=== PATIENT | male | born 1975 | race Caucasian/White ===

== ENCOUNTER 2023-03-11 10:48 | Inpatient (IN) ==
--- NOTE | 2023-02-20 09:59 | PAT Medication Instructions ---
Medication Instructions Date of Service February 20, 2023 Home Medications atenolol 50 mg tablet 50 mg PO BID cholecalciferol (vitamin D3) 25 mcg (1,000 unit) tablet 1,000 unit PO DAILY diphenoxylate-atropine 2.5 mg-0.025 mg tablet 1 - 2 tab PO BID gabapentin 600 mg tablet 600 mg PO BID levothyroxine 100 mcg tablet 100 mcg PO QAM lorazepam 0.5 mg tablet 0.5 mg PO QAM losartan 100 mg-hydrochlorothiazide 25 mg tablet 1 tab PO QAM naproxen 500 mg tablet 500 mg PO BID PRN Pain oxycodone-acetaminophen 5 mg-325 mg tablet 1 tab PO Q6H PRN Pain tizanidine 4 mg tablet 4 mg PO Q8H PRN Muscle Spasm trazodone 50 mg tablet 50 - 100 mg PO HS atorvastatin 40 mg tablet 40 mg PO QAM sildenafil 100 mg tablet 100 mg PO UD PRN Sexual Activity ASK your surgeon for instructions naproxen 500 mg tablet 500 mg PO BID PRN Pain STOP taking 24 hours before surgery sildenafil 100 mg tablet 100 mg PO UD PRN Sexual Activity DO NOT take the morning of surgery cholecalciferol (vitamin D3) 25 mcg (1,000 unit) tablet 1,000 unit PO DAILY diphenoxylate-atropine 2.5 mg-0.025 mg tablet 1 - 2 tab PO BID losartan 100 mg-hydrochlorothiazide 25 mg tablet 1 tab PO QAM tizanidine 4 mg tablet 4 mg PO Q8H PRN Muscle Spasm Take morning of surgery With a small sip of water, OTHERWISE NOTHING TO EAT OR DRINK AFTER MIDNIGHT: atenolol 50 mg tablet 50 mg PO BID gabapentin 600 mg tablet 600 mg PO BID levothyroxine 100 mcg tablet 100 mcg PO QAM lorazepam 0.5 mg tablet 0.5 mg PO QAM oxycodone-acetaminophen 5 mg-325 mg tablet 1 tab PO Q6H PRN Pain (if needed) atorvastatin 40 mg tablet 40 mg PO QAM Take evening before surgery atenolol 50 mg tablet 50 mg PO BID diphenoxylate-atropine 2.5 mg-0.025 mg tablet 1 - 2 tab PO BID gabapentin 600 mg tablet 600 mg PO BID oxycodone-acetaminophen 5 mg-325 mg tablet 1 tab PO Q6H PRN Pain (if needed) tizanidine 4 mg tablet 4 mg PO Q8H PRN Muscle Spasm (if needed) trazodone 50 mg tablet 50 - 100 mg PO HS Other Notes If you have any questions please call us at [phone] or [phone] or [phone] or [phone]
--- NOTE | 2023-02-25 14:33 | Anesthesiology Consultation ---
Date of Service February 25, 2023 Assessment & Plan (1) Encounter for pre-operative examination: Chart Review Chart Review: Acceptable Risk for Surgery (pending PCP clearance 03/07/23 ) and Patient seen in Pre Admission Testing - Awaiting PCP clearance 03/07/23 Per PAT appt on 02/25/23, patient denies any recent travel or large group activities. Pt is vaccinated for Covid. Will leave to surgeon's discretion if p reop Covid testing needed. Educated on importance of using Covid precautions one week prior to surgery Teaching & Discussion Pre-Anesthesia Teaching/Discussion Notes: Instructed NPO after midnight before surgery,except medications with 15 cc of water. Medication instructions provided according to the PAT guidelines. History Surgery Operation Date: 03/11/23 10:05 Proposed Procedures p L5-S1 Decompression and Fusion, Possible L4-L5 Spinal Cord Monitoring - Brad More, Height/Weight Height: 5 ft 8 in Weight: 91.8 kg Allergies Allergy/AdvReac Type Severity Reaction Status Date / Time Iodinated Contrast Media Allergy Severe Swelling Verified 02/20/23 14:25 [Iodinated Contrast- Oral of and IV Dye] Lip/Tongue/Throat Medications Home Medications Medication Instructions Recorded Confirmed Last Taken atenolol 50 mg tablet 50 mg PO BID 12/06/18 02/20/23 01/28/23 04:45 cholecalciferol (vitamin D3) 25 1,000 unit PO DAILY 12/06/18 02/20/23 01/28/23 04:45 mcg (1,000 unit) tablet diphenoxylate-atropine 2.5 1 - 2 tab PO BID 12/06/18 02/20/23 Unknown mg-0.025 mg tablet gabapentin 600 mg tablet 600 mg PO BID 12/06/18 02/20/23 01/28/23 04:45 levothyroxine 100 mcg tablet 100 mcg PO QAM 12/06/18 02/20/23 01/28/23 04:45 lorazepam 0.5 mg tablet 0.5 mg PO QAM 12/06/18 02/20/23 01/28/23 04:45 losartan 100 1 tab PO QAM 12/06/18 02/20/23 01/28/23 04:45 mg-hydrochlorothiazide 25 mg tablet naproxen 500 mg tablet 500 mg PO BID PRN Pain 12/06/18 02/20/23 Unknown tizanidine 4 mg tablet 4 mg PO Q8H PRN Muscle Spasm 12/06/18 02/20/23 01/25/23 trazodone 50 mg tablet 50 - 100 mg PO HS 12/06/18 02/20/23 01/25/23 atorvastatin 40 mg tablet 40 mg PO QAM 08/03/19 02/20/23 01/26/23 sildenafil 100 mg tablet 100 mg PO UD PRN Sexual Activity 08/22/19 02/20/23 Unknown #6 tabs dicyclomine 10 mg capsule 10 mg PO TID PRN IBS/diarrhea #90 02/20/23 02/20/23 Unknown caps hydrochlorothiazide 25 mg tablet 25 mg PO DAILY 02/25/23 02/25/23 Unknown topiramate 50 mg tablet (Topamax) 50 mg PO QPM 02/25/23 02/25/23 Unknown Past Medical History Medical History Anxiety Chronic pain Degenerative disc disease History of COVID-19 08/2021>RESOLVED HTN (hypertension) Hyperlipidemia Hypothyroidism IBS (irritable bowel syndrome) Diarrhea associated- following with GI C-scope January 2023- no significant issues per patient Insomnia Irregular heart beat NO HEEL SEAT LASTER- ASYMPTOMATIC Sleep apnea NO DEVICE- CANNOT TOLERATE Exercise / Class Metabolic Activity II 4-5 Yardwork/Stairs/Walk up hill (one flight of stairs- no chest pain or SOB ) Past Family History Family History Father Myocardial infarction Other No family history of adverse response to anesthesia No significant family history Past Surgical History Surgical History H/O inguinal hernia repair RT/LEFT H/O umbilical hernia repair History of colonoscopy History of esophagogastroduodenoscopy (EGD) Hx of neck surgery CERVICAL FUSION X 2 WITH CAGE ROM>"GOOD" CAN MOVE SIDE TO SIDE BUT LIMITED Hx of vasectomy [place] teeth removed Past Anesthesia History No Hx of Anesthesia Complications and No Family Hx of Anesthesia Complications History of PONV No Hx of PONV and No Hx of Motion Sickness Social History Smoking Status: Current every day smoker tobacco type: cigarettes Smoking cigarettes per day: 1/2 ppd Do You Dip or Chew Tobacco: No Hx Alcohol Use: No Hx Substance Use: No substance use type: does not use Review of Systems Patient denies chest pain, shortness of breath, dyspnea on exertion, reflux, cough, wheezing, palpitations. No hx of seizures, stroke, MS. No hx of blood clots or blood transfusions Physical Exam Vital Signs VITALS BP 142/87 P 84 TEMP 98.4 SP02 97% RESP 16 Constitutional no acute distress ENMT Mouth: no TMJ clicking Thyromental Distance: > or= 3.5 Finger Breadths (3.5) Mallampati Class: III Neck + limited neck extension (significant) Respiratory normal respiratory effort; no respiratory distress Auscultation: lungs clear to auscultation bilaterally; no wheezes Cardiovascular Rate/Rhythm: regular rate and regular rhythm Heart Sounds: no murmur Vessels: no carotid bruit Musculoskeletal Spine: no pain with cervical ROM Extremities: extremities normal to inspection Psychiatric Orientation: alert Lab Results Anesthesia Preop Results Results Anesthesia Widget: WBC 9.95 K/ul (4.8-10.8) 02/25/23 Hgb 15.1 g/dl (14.0-18.0) 02/25/23 Hct 43.0 % (42.0-52.0) 02/25/23 Plt 219 K/uL (130-400) 02/25/23 Na 133 mmol/L (136-145) L 02/25/23 K 3.3 mmol/L (3.5-5.1) L 02/25/23 Cl 99 mmol/L (98-107) 02/25/23 CO2 24 mmol/L (21-32) 02/25/23 BUN 12 mg/dl (6-23) 02/25/23 Creat 0.94 mg/dl (0.6-1.4) 02/25/23 Glucose Level 116 mg/dl (70-99(Fasting)) H 02/25/23 PT 10.6 Seconds (9.0-12.0) 02/25/23 PTT 28.4 Seconds (21.0-31.0) 02/25/23 INR 1.0 (0.9-1.1) 02/25/23 Urine Color Yellow 02/25/23 Urine Appearance Clear (Clear) 02/25/23 Urine pH 6.0 (4.5-7.5) 02/25/23 Urine Specific [place] 1.016 (1.000-1.030) 02/25/23 Urine Protein Negative (Negative) 02/25/23 Urine Glucose (UA) Negative (Negative) 02/25/23 Urine Ketones Negative (Negative) 02/25/23 Urine Blood Negative (Negative) 02/25/23 Urine Nitrite Negative (Negative) 02/25/23 Urine Bilirubin Negative (Negative) 02/25/23 Urine Urobilinogen Negative (Negative) 02/25/23 Urine Leukocyte Esterase Negative (Negative) 02/25/23 Blood Type A Positive 02/25/23 Antibody Screen NEGATIVE 02/25/23 Testing Electrocardiogram Date: 02/25/23 Findings: + NSR @ (78bpm ) Possible left atrial enlargement When compared to EKG from Jul- no significant change was found Chest X-Ray Date: 02/25/23 FINDINGS: Cardiac silhouette is enlarged. No pneumothorax, pleural effusion, airspace consolidation or pulmonary edema. Degenerative changes of the shoulders and spine. Postoperative changes of the cervical spine IMPRESSION: No acute process. Echocardiogram Date: 12/07/18 EF: 60-65% LV Function: normal Other Findings: + LVH (mild to moderate/concentric) and + diastolic dysfunction (Grade I ) Valvular Disease: + no significant valvular disease Other Testing Holter monitor 12/29/18= Impression: 1. Sinus rhythm with average heart rate 73 bpm. 2. Very rare isolated supraventricular ectopic complexes. 3. Very rare isolated PVCs. 4. No arrhythmia. 5. No reported symptoms. COVID-19 Risk Screen Screening Information COVID-19 Screen Date: 02/25/23 Exposure 21 Days Family/Household +COVID Last 21 Days: No Exposure 10 Days Any COVID Exposure Last 10 Days: No Symptoms Last 10 Days Experienced COVID Sx Last 10 Days: No + COVID 0-90 Days COVID + in Last 0-90 Days: No Risk Plan COVID Risk Plan: No Risk Identified Patient Education COVID Preop Screening Education Complete: Yes
[~2023-03-11 10:48] MED LIST: ACETAMINOPHEN 500 MG TAB PO SCH; CeleBREX 200 MG CAP PO SCH; GABAPENTIN 900 MG DOSE PO SCH; LR 15ML/HR IV SCH; ceFAZolin 2000MG 2,000 MG/15 ML SYR IV SCH
[2023-03-11] MEDS ORDERED: ONDANSETRON INJ 2 MG/ML 2 ML VIAL ONE (11:03)
[2023-03-11] MEDS ORDERED: PROPOFOL IV EMULSION 10 MG/ML 20 ML VIAL IV ONE (11:03)
[2023-03-11] MEDS ORDERED: LIDOCAINE 2% MPF LOCAL 5 ML VIAL ONE (11:03)
[2023-03-11] MEDS ORDERED: fentaNYL citrate PF 100 MCG/2 ML VIAL ONE (11:03)
[2023-03-11] MEDS ORDERED: DEXAMETHASONE SOD INJ 4 MG/ML VIAL ONE (11:03)
[2023-03-11] MEDS ORDERED: MIDAZOLAM HCL 1 MG/ML 2ML VIAL ONE (11:03)
[2023-03-11] MEDS ORDERED: ROCURONIUM BROMIDE 10 MG/ML 5 ML VIAL IV ONE (11:03)
[2023-03-11] MEDS ORDERED: ePHEDrine sulfate 50 MG/ML AMP IV PRN (11:50)
[2023-03-11] MEDS ORDERED: ONDANSETRON INJ 2 MG/ML 2 ML VIAL IV PRN ×2 (11:50→15:09)
[2023-03-11] MEDS ORDERED: fentaNYL citrate PF 100 MCG/2 ML VIAL IV PRN (11:50)
[2023-03-11] MEDS ORDERED: ATROPINE SULFATE 0.1 MG/ML 10ML SYR IV PRN (11:50)
--- NOTE | 2023-03-11 11:57 | History & Physical Bridge Note ---
Date of Service March 11, 2023 History & Physical Bridge Note I have examined the patient, reviewed the History & Physical and in the interval since the performance of the History & Physical I have noted the following changes of clinical significance: no changes noted
--- NOTE | 2023-03-11 11:58 | History & Physical Report ---
Date of Service March 11, 2023 Assessment & Plan (1) Neurogenic claudication due to lumbar spinal stenosis: Plan: L5-S1 decompression and fusion, possible L4-L5 History of Present Illness Chief Complaint: Back and leg pain Primary Care Provider: Julio Cesar Lincoln This is a 47-year-old male who presents with chronic persistent back and leg pain after failing course of nonoperative care is here for surgical invention. Allergies Allergy/AdvReac Type Severity Reaction Status Date / Time Iodinated Contrast Media Allergy Severe Swelling Verified 03/11/23 11:15 [Iodinated Contrast- Oral of and IV Dye] Lip/Tongue/Throat Home Medications Medication Instructions Recorded Confirmed Type atenolol 50 mg tablet 50 mg PO BID 12/06/18 03/11/23 History cholecalciferol (vitamin D3) 25 1,000 unit PO DAILY 12/06/18 03/11/23 History mcg (1,000 unit) tablet diphenoxylate-atropine 2.5 1 - 2 tab PO BID 12/06/18 03/11/23 History mg-0.025 mg tablet gabapentin 600 mg tablet 600 mg PO BID 12/06/18 03/11/23 History levothyroxine 100 mcg tablet 100 mcg PO QAM 12/06/18 03/11/23 History lorazepam 0.5 mg tablet 0.5 mg PO QAM 12/06/18 03/11/23 History losartan 100 1 tab PO QAM 12/06/18 03/11/23 History mg-hydrochlorothiazide 25 mg tablet naproxen 500 mg tablet 500 mg PO BID PRN Pain 12/06/18 03/11/23 History tizanidine 4 mg tablet 4 mg PO Q8H PRN Muscle Spasm 12/06/18 03/11/23 History trazodone 50 mg tablet 50 - 100 mg PO HS 12/06/18 03/11/23 History atorvastatin 40 mg tablet 40 mg PO QAM 08/03/19 03/11/23 History sildenafil 100 mg tablet 100 mg PO UD PRN Sexual Activity 08/22/19 03/11/23 History #6 tabs dicyclomine 10 mg capsule 10 mg PO TID PRN IBS/diarrhea #90 02/20/23 03/11/23 Rx caps hydrochlorothiazide 25 mg tablet 25 mg PO DAILY 02/25/23 03/11/23 History topiramate 50 mg tablet (Topamax) 50 mg PO QPM 02/25/23 03/11/23 History oxycodone-acetaminophen 5 mg-325 1 tab PO Q4H PRN Pain 03/11/23 03/11/23 History mg tablet potassium chloride 10 mEq 10 meq PO DAILY 03/11/23 03/11/23 History capsule,extended release Past Med/Surg History Medical History Anxiety Chronic pain Degenerative disc disease History of COVID-19 08/2021>RESOLVED HTN (hypertension) Hyperlipidemia Hypothyroidism IBS (irritable bowel syndrome) Diarrhea associated- following with GI C-scope January 2023- no significant issues per patient Insomnia Irregular heart beat NO DIRECTOR OF PHILANTHROPY- ASYMPTOMATIC Sleep apnea NO DEVICE- CANNOT TOLERATE Surgical History H/O inguinal hernia repair RT/LEFT H/O umbilical hernia repair History of colonoscopy History of esophagogastroduodenoscopy (EGD) Hx of neck surgery CERVICAL FUSION X 2 WITH CAGE ROM>"GOOD" CAN MOVE SIDE TO SIDE BUT LIMITED Hx of vasectomy [place] teeth removed Family History Father Myocardial infarction Other No family history of adverse response to anesthesia No significant family history Social History Smoking Status: Current every day smoker Cigarettes Per Day: 1/2 ppd; Second Hand Exposure: No; Do You Dip or Chew Tobacco: No; Tobacco Cessation Education Requested by Patient: No Hx Alcohol Use: No Hx Substance Use: No Preferred Language: Greek Communication Ability: Effective Head Of Design Required: No Beliefs That Will Affect Care: None marital status: Current Living Situation: Spouse Current Living Situation Comment: AND 2 CHILDREN current occupational status: employed Other Information That Helps Us Care for You: No Feels Safe at Home: Yes Safety Concerns: Feels Safe At This Time Assistive Devices: Glasses Physical Exam Physical Exam: Patient is alert and oriented Heart regular rhythm Lungs clear Results & Data Results & Data Vital Signs (Past 12 Hours) Vital Signs Temp Pulse Resp BP Pulse Ox O2 Del Method 03/11/23 11:05 36.7 C 76 18 136/87 98 Room Air
[2023-03-11] MEDS ORDERED: BUPIVACAINE/EPINEPHRINE 0.25% 1:200,000 30 ML VIAL ONE (12:13)
[2023-03-11] MEDS ORDERED: ceFAZolin 330 MG/ML 1 GM VIAL ONE (12:13)
[2023-03-11] MEDS ORDERED: HYDROmorphone INJ 2 MG/ML SYR/VIAL ONE (12:50)
[2023-03-11] MEDS ORDERED: FLOSEAL HEMOSTATIC MATRIX 10ML TOP ONE (12:57)
[2023-03-11] MEDS ORDERED: SUGAMMADEX SODIUM 200 MG/2 ML VIAL IV ONE (13:57)
--- NOTE | 2023-03-11 14:04 | Operative Report ---
Post Operative Report Pre & Post Diagnosis Operation Date: 03/11/23 12:25 Pre-Op Diagnosis: Radiculopathy, Lumbar Region Post-Op Diagnosis: Radiculopathy, Lumbar Region I identified the patient and participated in the time-out.: Yes Procedure Operation Date: 03/11/23 12:25 Actual Procedures #1 lumbar decompression bilateral medial facetectomies and foraminotomies L4-L5 L5-S1. #2 posterior spinal fusion L5-S1. #3 placement posterior instrumentation L5-S1. #4 interbody fusion L5-S1 per #5 placement of Spira 14 x 26 mm cage at L5-S1. #6 placement locally harvested morselized autograft in the posterior gutters. #7 placement of I factor combined with the talus in the interbody space and posterior lateral gutters. Surgeon Brad More, DO Biogeographer Viola Reddy Estimated Blood Loss 50 Findings See Below Patient is 5 foot 8 weighing over 90 kg with a BMI in excess of 30. The patient's body habitus did contribute to significant technical difficulty required deepest retractors and longer instruments in order to perform his procedure. This had at least 50% increased operative time. Specimens None Indications This is a 47-year-old male who presents above-mentioned diagnosis after failed course of nonoperative care is here for surgical invention. Description of Procedure Patient was met with identified informed consent obtained. Patient was then taken to the operative suite underwent patient placed in a prone position on the Jeremie table top of the Juan C frame. All bony promises well-padded eyes inspected to ensure no external pressure placed upon them. This point the lumbar spine was prepped and draped in normal sterile fashion. Sharp dissection with the assistance of Bovie cautery was performed down to and exposing the lamina and transverse processes of L5 and sacral ala bilaterally. From caudal to cephalad fashion complete laminectomy L5 partial laminectomy of L4 was performed including bilateral medial facetectomies and foraminotomies addressing severe spinal stenosis as well as evidence of large calcified disc herniation 5 S1 on the right. After complete decompression pedicle screws were placed in L5 and S1 levels bilaterally with assistance of fluoroscopy and the properly sized isabella placed. By way the transforaminal approach on the right complete discectomy L5-S1 was performed endplates curetted to subcortical bleeding bone and a 14 x 26 mm Spira cage with I factor tapped in position. The rods then locked in final position bilaterally. The transverse processes of L5 and sacral ala burred to subcortical bleeding bone. I factor amount of the test and locally harvested morselized autograft was placed in the posterior gutters. 15 round BERTO drain inserted. The incision was then closed with 1 Vicryl the fascia 2-0 Vicryl subcutaneously and 4 Monocryl for final skin closure. Steri-Strips and sterile dressing placed. Patient awakened taken to PACU stable condition. Please note spinal cord monitoring was utilized at the procedure no changes noted. Lastly Viola eRddy was present at the entire surgeon while the patient positioning complex portions of the surgery and final skin closure. I attest to the content of the Intraoperative Record and any orders documented therein. Any exceptions are noted below.
--- NOTE | 2023-03-11 14:34 | Fluoroscopy Report ---
INTRAOPERATIVE RADIOGRAPHS CLINICAL HISTORY: L5-S1 spinal fusion. Fluoro time: 22 seconds Ka,r: 18.68 mGy FINDINGS: 2 spot fluoroscopic views of the lumbar spine are presented. There has been discectomy at L 5-S1 with laminectomy and posterior fusion at this level. Interpedicular screws are in place. The ort hopedic hardware appears intact. IMPRESSION: Intraoperative images from lumbar spinal fusion surgery as above. Electronically signed by: Tristian Qiu M.D. 03/11/2023 2:33 PM
--- NOTE | 2023-03-11 14:56 | Anesthesiology Progress Note ---
Date of Service March 11, 2023 Anesthesia Post Procedure Vital Signs Vital Signs: Temp Pulse Pulse Resp BP Pulse Ox O2 Del Method 03/11/23 14:45 97.3 F L 73 12 143/89 H 98 Room Air 03/11/23 14:35 72 13 141/93 H 100 Oxymask 03/11/23 14:25 76 14 139/92 99 Oxymask 03/11/23 14:19 97.2 F L 73 14 165/93 H 99 Oxymask 03/11/23 11:05 98.1 F 76 18 136/87 98 Room Air O2 Flow Rate 03/11/23 14:45 03/11/23 14:35 9 03/11/23 14:25 9 03/11/23 14:19 9 03/11/23 11:05 Pain Intensity Right Lower Back: Pain Intensity: 6 Back: Pain Intensity: 4 Transfer of Care Handoff Completed per policy Notes Mental Status: alert / awake / arousable and participated in evaluation Patient Amnestic to Procedure: Yes Nausea / Vomiting: adequately controlled Pain: adequately controlled Airway Patency, RR, SpO2: stable & adequate BP & HR: stable & adequate Hydration State: stable & adequate Anesthetic Complications: no major complications apparent and Pt Satisfied with anesthetic care
[2023-03-11] MEDS ORDERED: traMADol HCL 50 MG TABLET PO PRN (15:09)
[2023-03-11] MEDS ORDERED: ALUMINUM/MAGNESIUM SUSP 30 ML UDC PO PRN (15:09)
[2023-03-11] MEDS ORDERED: FAMOTIDINE 20 MG TAB PO PRN (15:09)
[2023-03-11] MEDS ORDERED: LORazepam 2 MG/1 ML VIAL IV PRN (15:09)
[2023-03-11] MEDS ORDERED: PROMETHAZINE HCL 12.5 MG in SODIUM CHLORIDE 0.9% 50 ML IV PRN (15:09)
[2023-03-11] MEDS ORDERED: ACETAMINOPHEN 1,000 MG/100 ML VIAL IV PRN (15:09)
[2023-03-11] MEDS ORDERED: METOCLOPRAMIDE HCL INJ 5 MG/ML 2 ML VIAL IV PRN (15:09)
[2023-03-11] MEDS ORDERED: MAGNESIUM HYDROXIDE SUSP 30 ML UDC PO PRN (15:09)
[2023-03-11] MEDS ORDERED: diphenhydrAMINE Capsule 25 MG CAP PO PRN (15:09)
[2023-03-11] MEDS ORDERED: ACETAMINOPHEN 500 MG TAB PO PRN (15:09)
[2023-03-11] MEDS ORDERED: SOD PHOSPHATE/SOD BIPHOSPHATE ENEMA 132 ML BTL PR PRN (15:09)
[2023-03-11] MEDS ORDERED: tiZANidine HCL 4 MG TABLET PO PRN (15:09)
[2023-03-11] MEDS ORDERED: HYDROmorphone INJ 1 MG/ML SYRINGE IV PRN (15:09)
[2023-03-11] MEDS ORDERED: HYDROmorphone INJ 0.5 MG/0.5 ML SYR IV PRN (15:09)
[2023-03-11] MEDS ORDERED: ONDANSETRON 4 MG OD TAB PO PRN (15:09)
[2023-03-11] MEDS ORDERED: LORazepam 0.5 MG TAB PO PRN (15:09)
[2023-03-11] MEDS ORDERED: DO NOT ADMINISTER FLU VACCINE PRN (15:09)
[2023-03-11] MEDS ORDERED: hydrOXYzine HCl 25 MG TAB PO PRN (15:09)
[2023-03-11] MEDS ORDERED: NALOXONE HCL 0.4 MG/1 ML VIAL/CARP IV PRN (15:09)
[2023-03-11] MEDS ORDERED: DO NOT ADMINISTER PNEUMOCOCCAL VACCINE PRN (15:09)
[2023-03-11] MEDS ORDERED: bisacodyL 10 MG SUPP PR PRN (15:09)
--- NOTE | 2023-03-11 15:52 | Hospitalist Consultation ---
Date of Consultation March 11, 2023 Assessment & Plan (1) Status post lumbar spine operative procedure for decompression of spinal cord: -Patient is currently afebrile, hemodynamically stable, and stable on RA -Pain control, perioperative abx, DVT PPX, and IV fluids per the primary team -Agree with am labs, we will follow -Will add on Protonix for stress ulcer PPX -Thank you for allowing us to participate in the care of this patient, please reach out with any questions or concerns (2) Chronic diarrhea: -Continue Bentyl (3) SHARI (obstructive sleep apnea): -No longer using CPAP due to night terrors (4) Hypothyroid: -Continue levothyroxine (5) HTN (hypertension): -Stable -Agree with continuing atenolol tonight -Agree with continuing Losartan-HCTZ and separate HCTZ tomorrow as long as he is stable and without renal or electrolytes derrangements (6) Chronic pain: -Acute pain control due to procedure per the primary team -Continuing gabapentin and trazodone -PRN Narcan ordered by the primary team (7) Anxiety: -Continue ativan (8) Insomnia: -Continue HS trazodone Plan The patient was discussed with Dr. Solis at the time of the consult Supervising Physician Co-Signing Physician Notes Patient seen and examined, chart reviewed, case discussed with [] and I agree with the assessment and plan as above except as otherwise noted Labs and images reviewed Arian is a 47-year-old male with past medical history of neurogenic claudication, chronic back pain due to lumbar stenosis, SHARI, hypothyroidism, hypertension, anxiety, chronic pain who presented for lumbar decompression and fusion with Dr. More. We are consulted for medical management of comorbidities. At bedside assessment patient is sleeping comfortably, awakens easily and reports he feels well, continues to have some pain going into his proximal right leg. This currently feels slightly less than preoperatively, reports feeling a started come back and is not sure how much pain will come back yet but is optimistic. He does have some postsurgical pain in his lumbar spine around the surgical site which does not radiate. He denies shortness of breath, difficulty breathing, lightheadedness, dizziness. Patient is curious what his pain control regimen will be, discussed that this will be adjusted based on the degree of pain that he has and hopefully the surgery will have helped with this. Can continue Tylenol every 8 hours, Toradol every 6 hours, tizanidine for spasm, and hydromorphone for breakthrough pain. Can transition to p.o. oxycodone for breakthrough pain. Hold all narcotics for any signs of narcosis. PPI added for GI prophylaxis especially while on high-dose Toradol. agree with resuming atenolol tonight and continuing losartan/HCTZ tomorrow as long as renal function remains at baseline. Can continue trazodone nightly, ideally would be on CPAP but is not able to tolerate this due to anxiety and night terrors so reasonable to defer unless patient display signs of hypercapnia which she currently does not. Lungs are clear, heart rate is regular at assessment. BERTO drain is in place in pocket draining serosanguineous material. Agree with assessment and management above History of Present Illness Reason for Consultation: Post-op medical management Requesting Physician: Brad More DO Attending Physician: Dr. Joseph Solis History of Present Illness Arian is a 47 year old male with a PMH significant for HTN, hypothyroidism, SHARI, anxiety, hyperlipidemia, tobacco abuse, and chronic low back pain who presented to [facility] OR on 03/11/23 for L5-S1 Decompression and Fusion, Spinal Cord Monitoring with Dr. More. Per the operative note, there were no reported intraoperative complications and EBL was listed as 50 cc. Per review, his vitals have been stable since arriving this am. At the time of the exam the patient was lying in bed in no acute distress with his family sitting bedside. He has some minor pain at procedure site, otherwise he is feeling well. he confirms that he is no longer his CPAP machine and took his am medications today. He recently started topamax for chronic neck pain. Please refer to Dr. Solis's attestation for any changes to the treatment plan Allergies Allergy/AdvReac Type Severity Reaction Status Date / Time Iodinated Contrast Media Allergy Severe Swelling Verified 03/11/23 11:15 [Iodinated Contrast- Oral of and IV Dye] Lip/Tongue/Throat Home Medications Medication Instructions Recorded Confirmed Type atenolol 50 mg tablet 50 mg PO BID 12/06/18 03/11/23 History cholecalciferol (vitamin D3) 25 1,000 unit PO DAILY 12/06/18 03/11/23 History mcg (1,000 unit) tablet diphenoxylate-atropine 2.5 1 - 2 tab PO BID 12/06/18 03/11/23 History mg-0.025 mg tablet gabapentin 600 mg tablet 600 mg PO BID 12/06/18 03/11/23 History levothyroxine 100 mcg tablet 100 mcg PO QAM 12/06/18 03/11/23 History lorazepam 0.5 mg tablet 0.5 mg PO QAM 12/06/18 03/11/23 History losartan 100 1 tab PO QAM 12/06/18 03/11/23 History mg-hydrochlorothiazide 25 mg tablet naproxen 500 mg tablet 500 mg PO BID PRN Pain 12/06/18 03/11/23 History tizanidine 4 mg tablet 4 mg PO Q8H PRN Muscle Spasm 12/06/18 03/11/23 History trazodone 50 mg tablet 50 - 100 mg PO HS 12/06/18 03/11/23 History atorvastatin 40 mg tablet 40 mg PO QAM 08/03/19 03/11/23 History sildenafil 100 mg tablet 100 mg PO UD PRN Sexual Activity 08/22/19 03/11/23 History #6 tabs dicyclomine 10 mg capsule 10 mg PO TID PRN IBS/diarrhea #90 02/20/23 03/11/23 Rx caps hydrochlorothiazide 25 mg tablet 25 mg PO DAILY 02/25/23 03/11/23 History topiramate 50 mg tablet (Topamax) 50 mg PO QPM 02/25/23 03/11/23 History oxycodone-acetaminophen 5 mg-325 1 tab PO Q4H PRN Pain 03/11/23 03/11/23 History mg tablet potassium chloride 10 mEq 10 meq PO DAILY 03/11/23 03/11/23 History capsule,extended release oxycodone 5 mg tablet 5 mg PO DAILY PRN pain #30 tabs 03/12/23 Rx tramadol 50 mg tablet 50 mg PO Q6H PRN pain, moderate 03/12/23 Rx #30 tabs Patient History Medical History Anxiety Chronic pain Degenerative disc disease History of COVID-19 08/2021>RESOLVED HTN (hypertension) Hyperlipidemia Hypothyroidism IBS (irritable bowel syndrome) Diarrhea associated- following with GI C-scope January 2023- no significant issues per patient Insomnia Irregular heart beat 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 apnea NO DEVICE- CANNOT TOLERATE Surgical History H/O inguinal hernia repair RT/LEFT H/O umbilical hernia repair History of colonoscopy History of esophagogastroduodenoscopy (EGD) Hx of neck surgery CERVICAL FUSION X 2 WITH CAGE ROM>"GOOD" CAN MOVE SIDE TO SIDE BUT LIMITED Hx of vasectomy [place] teeth removed Family History Father Myocardial infarction Other No family history of adverse response to anesthesia No significant family history Social History Smoking Status: Current every day smoker Cigarettes Per Day: 1/2 ppd; Second Hand Exposure: No; Do You Dip or Chew Tobacco: No; Tobacco Cessation Education Requested by Patient: No Hx Alcohol Use: No Hx Substance Use: No Preferred Language: Sinhala Communication Ability: Effective Hull Grinder Required: No Beliefs That Will Affect Care: None marital status: Current Living Situation: Spouse Current Living Situation Comment: AND 2 CHILDREN current occupational status: employed Other Information That Helps Us Care for You: No Feels Safe at Home: Yes Safety Concerns: Feels Safe At This Time Assistive Devices: Glasses Physical Exam Physical Exam: Physical Exam: General: In no acute distress, stated age, well-nourished, good hygiene HEENT: Normocephalic, atraumatic, no scleral icterus, pupils around round, symmetrical, and reactive to light, moist mucus membranes, trachea midline, no thyromegaly Chest/Pulm: No respiratory distress, symmetrical chest expansion, clear breath sounds throughout Cardiac: RRR, no murmurs noted Abdomen: Negative for ascites and bruising, normoactive bowel sounds, soft, non-tender to palpation throughout Musculoskeletal: Patient with no bleeding at the procedure site, drain is in place and without complications, Symmetrical and without signs of acute trauma, upper and lower extremities with full ROM, no atrophy, spasticity, or flaccidity Extremities: Radial, dorsalis pedis, and posterior tibial pulses are intact and symmetrical, no edema noted in the BL LE's Skin: Warm, dry, no rashes , lesions, or scars noted Neuro: Alert and oriented to person, place, month, year, and president, no focal defects, CN II-XII tested and intact, no tremors noted Psych: No acute distress, calm and cooperative during the exam Results & Data Results & Data Vital Signs (Past 12 Hours) Vital Signs Temp Pulse Pulse Resp BP Pulse Ox O2 Del Method 03/11/23 15:11 36.7 C 76 16 149/88 H 97 Room Air 03/11/23 14:55 74 14 157/94 H 96 Room Air 03/11/23 14:45 36.3 C L 73 12 143/89 H 98 Room Air 03/11/23 14:35 72 13 141/93 H 100 Oxymask 03/11/23 14:25 76 14 139/92 99 Oxymask 03/11/23 14:19 36.2 C L 73 14 165/93 H 99 Oxymask 03/11/23 11:05 36.7 C 76 18 136/87 98 Room Air O2 Flow Rate 03/11/23 15:11 03/11/23 14:55 03/11/23 14:45 03/11/23 14:35 9 03/11/23 14:25 9 03/11/23 14:19 9 03/11/23 11:05 Diagnostic Findings Lumbar Spine X-Ray 03/11/23 12:25 INTRAOPERATIVE RADIOGRAPHS CLINICAL HISTORY: L5-S1 spinal fusion. Fluoro time: 22 seconds Ka,r: 18.68 mGy FINDINGS: 2 spot fluoroscopic views of the lumbar spine are presented. There has been discectomy at L5-S1 with laminectomy and posterior fusion at this level. Interpedicular screws are in place. The orthopedic hardware appears intact. IMPRESSION: Intraoperative images from lumbar spinal fusion surgery as above. Electronically signed by: Tristian Qiu M.D. 03/11/2023 2:33 PM ECG Additional Comments: No ECG available at the time of the consult PG Care Time/CCT Total # of Minutes Spent Total Time Spent with Patient: Total time spent is greater than 50% in coordination of care (as documented) at patient's floor/unit and/or counseling patient: C[place] [address] IN/OBS CONSULT LVL 5,80M Patient Type Established Medical Decision Making Moderate Complexity Diagnoses Status post lumbar spine operative procedure for decompression of spinal cord Z98.890 Chronic diarrhea K52.9 SHARI (obstructive sleep apnea) G47.33 Hypothyroid E03.9 HTN (hypertension) I10 Chronic pain G89.29 Anxiety F41.9 Insomnia G47.00
[2023-03-11] MEDS: LACTATED RINGER'S 1,000 ML IV SCH ×2 (16:06→23:18)
[2023-03-11] MEDS: oxyCODONE HCL IR 5 MG TAB (IMMEDIATE RELEASE) PO PRN (17:02)
[2023-03-11] MEDS: PANTOprazole 40 MG TAB PO SCH (17:03)
[2023-03-11] MEDS: ATENOLOL 50 MG TABLET PO SCH (20:14)
[2023-03-11] MEDS: DOCUSATE SODIUM/SENNA 50/8.6MG TAB PO SCH (20:15)
[2023-03-11] MEDS: TOPIRAMATE 50 MG TAB PO SCH (20:15)
[2023-03-11] MEDS: traZODone HCL 50 MG TAB PO SCH (20:15)
[2023-03-11] MEDS: GABAPENTIN 600 MG TAB PO SCH (20:16)
[2023-03-11] MEDS: ceFAZolin 2000MG 2,000 MG/15 ML SYR IV SCH (20:23)
[2023-03-11] MEDS: KETOROLAC 30 MG/ML VIAL IV SCH (23:21)
[2023-03-12] MEDS: ceFAZolin 2000MG 2,000 MG/15 ML SYR IV SCH (04:24)
[2023-03-12] MEDS: POLYETHYLENE (MIRALAX) 17 GM PACK PO SCH ×5 (05:47→23:07)
[2023-03-12] MEDS: KETOROLAC 30 MG/ML VIAL IV SCH ×3 (06:23→18:12)
[2023-03-12] MEDS: LEVOTHYROXINE SODIUM 100 MCG TABLET PO SCH (06:24)
[2023-03-12 06:44] LABS: Basophils # (auto) 0.01 K/uL (0-0.2); Basophils % (auto) 0.1 %; Hematocrit (blood only) 34.6 % (42.0-52.0); Hemoglobin 12.6 g/dl (14.0-18.0); Immature Granulocytes # (auto) 0.13 K/uL (0.01-0.20); Immature Granulocytes % (auto) 0.7 %; Lymphocytes % (auto) 10.4 %; Mean Corpuscular Hemoglobin 31.2 pg (25.0-34.0); Mean Corpuscular Hgb Conc 36.4 g/dL (32.0-36.0); Mean Corpuscular Volume 85.6 fL (80.0-100.0); Mean Platelet Volume 9.4 fL (9.4-12.4); Monocytes # (auto) 1.61 K/uL (0.11-0.59); Monocytes % (auto) 9.3 %; Neutrophils # (auto) 13.83 K/uL (1.40-6.50); Neutrophils % (auto) 79.5 %; Platelet Count 218 K/uL (130-400); RDW Coefficient of Variation 12.5 % (11.5-14.5); RDW Standard Deviation 39.3 fL (36.4-46.3); Red Blood Count 4.04 M/uL (4.70-6.10); White Blood Count 17.38 K/ul (4.8-10.8)
[2023-03-12 07:00] LABS: BUN Creatinine Ratio 14.4 (10-20); Calcium 8.4 mg/dl (8.6-10.3); Creatinine Clr Calc Pharmacy 113.1 ml/min; Est GFR (African American) 119.1 ml/min; Est GFR (Non-African American) 102.8 ml/min; Potassium 3.9 mmol/L (3.5-5.1)
[2023-03-12] MEDS: LACTATED RINGER'S 1,000 ML IV SCH (07:14)
[2023-03-12] MEDS: ATENOLOL 50 MG TABLET PO SCH ×2 (08:23→20:15)
[2023-03-12] MEDS: LOSARTAN/HCTZ 50/12.5MG TAB PO SCH (08:24)
[2023-03-12] MEDS: POTASSIUM CHLORIDE 10 MEQ TABCR PO SCH (08:24)
[2023-03-12] MEDS: GABAPENTIN 600 MG TAB PO SCH ×2 (08:24→20:16)
[2023-03-12] MEDS: hydroCHLOROthiazide 25 MG TAB PO SCH (08:24)
[2023-03-12] MEDS: CHOLECALCIFEROL 1,000 UNITS 25 MCG TAB PO SCH (08:25)
[2023-03-12] MEDS: PANTOprazole 40 MG TAB PO SCH (08:25)
[2023-03-12] MEDS: ATORVASTATIN 40 MG TAB PO SCH (08:25)
[2023-03-12 09:32] LABS: Estimated Average Glucose 148 mg/dl; Hemoglobin A1C 6.8 % (4.5-5.6)
[2023-03-12] MEDS: oxyCODONE HCL IR 5 MG TAB (IMMEDIATE RELEASE) PO PRN (10:56)
[2023-03-12] MEDS: NICOTINE 21 MG/24 HR TDSY TD SCH (10:56)
--- NOTE | 2023-03-12 12:55 | Orthopedic Progress Note ---
Date of Service March 12, 2023 Assessment & Plan (1) Neurogenic claudication due to lumbar spinal stenosis: Plan: We will continue physical therapy monitor his BERTO output hopefully discharge home in next few days. Admission and Anticipated Discharge Date Admission Date: March 11, 2023 Subjective Back pain controlled leg pain markedly improved Physical Exam Physical Exam: Patient has good strength testing. Appears comfortable. Results & Data Vital Signs (Past 12 Hours) Vital Signs Temp Pulse Pulse Resp BP Pulse Ox O2 Del Method 03/12/23 11:30 36.8 C 84 18 124/80 97 Room Air 03/12/23 07:14 36.7 C 79 16 130/71 97 Room Air 03/12/23 04:26 75 127/75 03/12/23 03:10 36.7 C 89 18 90/60 L 96 Room Air
--- NOTE | 2023-03-12 15:21 | Hospitalist Progress Note ---
Date of Service March 12, 2023 Assessment & Plan (1) Status post lumbar spine operative procedure for decompression of spinal c ord: Plan: POD#1 - Patient is currently afebrile, hemodynamically stable, and stable on RA - Pain control, perioperative abx, DVT PPX, and IV fluids per the primary team - Protonix added for stress ulcer PPX - Recommended incentive spirometer use q1h wa for atelectasis/pna prevention - PT/OT - Noted to have leukocytosis and mild hyperglycemia which is likely steroid induced (2) Hyperglycemia: Plan: Acute/stable - BSG on BMP this AM is 260, likely a component of this is driven by steroid administration - A1c up at 6.8%, c/w prediabetes - Will defer to PCP regarding starting Metformin or just moving forward with diet/exercise modifications (3) Chronic diarrhea: Plan: - Continue Bentyl (4) SHARI (obstructive sleep apnea): Plan: - No longer using CPAP due to night terrors (5) Hypothyroid: Plan: - Continue levothyroxine (6) HTN (hypertension): Plan: Chronic/stable - Continue Atenolol and Losartan-HCTZ (7) Chronic pain: Plan: Acute pain control due to procedure per the primary team - Continuing gabapentin and trazodone - PRN Narcan ordered by the primary team (8) Anxiety: Plan: Chronic/stable - Anxiety and Insomnia - Continue ativan and trazodone Plan Nicotine patch ordered (pt smokes 1ppd). Did have a lengthy discussion with him on importance of tobacco cessation especially with post op healing, he verbalized understanding. No further recommendations at this time, will sign off but please feel free to reach out if any acute needs should arise while patient remains in house. Above plan of care has been d/w Dr. Glover. Admission and Anticipated Discharge Date Admission Date: March 11, 2023 Subjective Patient seen on daily rounds this morning. He reports no complaints. Back pain is controlled, denies loss of bowel/bladder control, no saddle anesthesias, denies numbness/tingling or pain running down his legs. He denies cp or dyspnea. Physical Exam Physical Exam: GENERAL: 47 yo well-developed, well-nourished WM. AAOx4. NAD. LUNGS: Clear to auscultation bilaterally. No W/R/R. CARDIOVASCULAR: Regular rate and rhythm. ABDOMEN: Soft, non-tender and non-distended. BS normoactive x 4 quad. EXTREMITIES: No edema. Non-tender. Peripheral pulses +2/4. NEUROLOGIC: No focal neurological deficits. b/l LE strength 5/5. BERTO drain noted extending from incision. Results & Data Results & Data Vital Signs (Past 12 Hours) Vital Signs Temp Pulse Pulse Resp BP Pulse Ox O2 Del Method 03/12/23 11:30 36.8 C 84 18 124/80 97 Room Air 03/12/23 07:14 36.7 C 79 16 130/71 97 Room Air 03/12/23 04:26 75 127/75 Laboratory Results 03/12/23 06:11 03/12/23 06:11 PG Care Time/CCT Total # of Minutes Spent Total Time Spent with Patient: Total time spent is greater than 50% in coordination of care (as documented) at patient's floor/unit and/or counseling patient: Coding Level of Care Code 81466 SUB INP/OBS CARE 2/35MIN Diagnoses Status post lumbar spine operative procedure for decompression of spinal cord Z98.890 Hyperglycemia R73.9 Chronic diarrhea K52.9 SHARI (obstructive sleep apnea) G47.33 Hypothyroid E03.9 HTN (hypertension) I10 Chronic pain G89.29 Anxiety F41.9
[2023-03-12] MEDS: TOPIRAMATE 50 MG TAB PO SCH (20:16)
[2023-03-12] MEDS: traZODone HCL 50 MG TAB PO SCH (20:16)
[2023-03-12] MEDS: DOCUSATE SODIUM/SENNA 50/8.6MG TAB PO SCH (20:18)
[2023-03-13] MEDS: oxyCODONE HCL IR 5 MG TAB (IMMEDIATE RELEASE) PO PRN ×2 (03:56→09:05)
[2023-03-13] MEDS: POLYETHYLENE (MIRALAX) 17 GM PACK PO SCH (05:26)
[2023-03-13] MEDS: LEVOTHYROXINE SODIUM 100 MCG TABLET PO SCH (05:39)
[2023-03-13] MEDS: ATENOLOL 50 MG TABLET PO SCH (08:59)
[2023-03-13] MEDS: hydroCHLOROthiazide 25 MG TAB PO SCH (08:59)
[2023-03-13] MEDS: GABAPENTIN 600 MG TAB PO SCH (08:59)
[2023-03-13] MEDS: CHOLECALCIFEROL 1,000 UNITS 25 MCG TAB PO SCH (08:59)
[2023-03-13] MEDS: PANTOprazole 40 MG TAB PO SCH (08:59)
[2023-03-13] MEDS: POTASSIUM CHLORIDE 10 MEQ TABCR PO SCH (09:00)
[2023-03-13] MEDS: ATORVASTATIN 40 MG TAB PO SCH (09:00)
[2023-03-13] MEDS: LOSARTAN/HCTZ 50/12.5MG TAB PO SCH (09:00)
[2023-03-13] MEDS: NICOTINE 21 MG/24 HR TDSY TD SCH (09:00)
--- NOTE | 2023-03-13 10:35 | Communication Note ---
Date of Service: March 13, [address] More this morning and no need for hospitalist service to see Mr Simental. Hospitalist signed off -- to contact with any questions/concerns.
--- NOTE | 2023-03-13 10:48 | Discharge Summary ---
Date of Service March 13, 2023 Admission HPI Per Admitting Provider This is a 47-year-old male who presents with chronic persistent back and leg pain after failing course of nonoperative care is here for surgical invention. Principal Diagnosis Lumbar spinal stenosis with radiculopathy Discharge Data Allergies Allergy/AdvReac Type Severity Reaction Status Date / Time Iodinated Contrast Media Allergy Severe Swelling Verified 03/11/23 11:15 [Iodinated Contrast- Oral of and IV Dye] Lip/Tongue/Throat Consultations 03/11/23 15:09 Consult Hospitalist Routine Procedures Performed Operation Date: 03/11/23 12:25 Actual Procedures p L5-S1 Decompression and Fusion, Spinal Cord Monitoring(Not Applicable) - Brad More DO Ordered Studies 03/11/23 12:25 FL lumbar spine 2-3V Routine Hospital Course (1) Neurogenic claudication due to lumbar spinal stenosis: Patient 1 lumbar decompression fusion tolerated this well second orthopedic for postop lipid postop day 1 is up and ambulating progress postop day #2. BERTO drain decreasing probably. Excellent strength testing. Pain well controlled. Subsidy discharged home. Discharge orders instructions found in chart for further review. Total Time Total Time Spent Total Time Spent (In Minutes): 20 minutes Discharge Plan Discharge Items Patient Disposition: Home - Self-Care Reason For Visit: Radiculopathy, Lumbar Region Discharge Diagnosis: Lumbar stenosis with radiculopathy Activity: As commented below Non-emergency contact: Primary Care Provider Call non-emergency contact if: you have any medication questions Follow-up/Referrals: Julio Cesar Lincoln D.O. [Primary Care Provider] - Diet: Regular Addtl Attending Provider Instructions: ACTIVITY RECOMMENDATIONS: SELF CARE INSTRUCTIONS AFTER THORACIC/LUMBAR FUSIONS 1. You may walk to your tolerance. It is good exercise for your legs and back. Expect some back and intermittent leg aches and pains. 2. You may perform "counter-top" level activities (make a sandwich, lakisha with a project, etc.). 3. No bending or lifting of more than 10 pounds or back twisting of any nature (roll like a log when turning in bed). 4. You may ride in a car for 20-30 minutes at a time. No driving until after your first visit with your doctor. 5. Frequent changes of position and restricting sitting to 30 minutes at a time will help limit the amount of back spasms and stiffness you may experience. 6. You may discontinue the use of ambulatory aids (cane, crutches, etc.) once your strength and confidence allow. 7. You may cork insulation setter the shower and let water strike your incision when you arrive home at least once daily. Do not take a tub bath, sit in a hot tub or go into a swimming pool until after your first recheck in the office. SPECIAL CARE INSTRUCTIONS: VERY IMPORTANT TO READ AND REVIEW A. Your surgical incision has been closed with a cosmetic suture under the skin that will dissolve in about 6 weeks. In 14 days, you can use a pair of clean scissors and cut the suture that is left outside of the skin at the ends of your incision. 1. The small skin tapes can be removed 7 days after surgery if they have not fallen off by that point. 2. You may keep the wound open to air as much as possible to promote healing after post-op day number 5 unless told otherwise by your doctor. 3. If you think the wound looks like it is becoming infected (redness or worsening drainage) and/or you are experiencing fever, chill or worsening back pain and muscle spasms, contact the office so that we may evaluate you as soon as possible. B. Complications are uncommon, but please contact us if you have any signs or symptoms of: 1. wound infection (fever higher than 102.5 degrees F, redness, separation of wound, drainage, or increasing pain from the incision) 2. blood clots in legs (pain, swelling, redness and warmth in legs) 3. urinary tract infection (fever higher than 102.5 degrees F, burning upon urination or increased frequency of urination) 4. nerve problems (inability to walk on your toes or heels, numbness, loss of bowel or bladder control) 5. any other symptoms that concern you C. Please call the office at if you have any concerns or questions about your operation or recovery. D. No smoking! Smoking drastically decreases the chance of a solid fusion. E. Do not take any anti-inflammatory medications (Indocin, Advil, Motrin, Aspirin, Naprosyn, etc.) as these may inhibit the chance of a solid fusion. Tylenol is okay to take for pain. MANAGING PAIN AFTER SPINAL SURGERY 1. Narcotic medication is intended for short-term use and will be provided for surgical pain. Surgical pain usually lasts for a period of 4-6 weeks. Narcotic medication includes Percocet, Vicodin, Darvocet, Tylenol #3 or Lortab. 2. Longer-term pain is more appropriately treated with non-narcotic medication such as Tylenol ES. 3. Muscle spasm is not appropriately treated with narcotics. Muscle relaxers such as Soma, Flexeril or Skelaxin can be used along with Tylenol ES. 4. Remember that we all live with some "aches and pains". This is not unusual or uncommon after an injury or as we get older. a. Back pain is expected and may include muscle spasms for 4 to 6 weeks after surgery. The pain should gradually improve. If the pain worsens for no apparent reason, please contact the office. b. Intermittent leg pain may also be experienced and should not be concerned about unless it worsens for no apparent reason. If so, please contact the office. 5. We will provide appropriate medication within the normal guidelines of their prescribed use. We will also be very cautious and aware of potential abuse and extended duration of patients' medication needs. a. Pain medications are for your comfort and to assist with sleep and rest so that the tissue can heal. They are not provided in order to return to normal activity and should not be used through the day. To do so or worsening pain at night can result from ongoing tissue damage and development of tolerance to the prescribed medicine. 6. Please allow 2-3 days to process refills. Prescriptions will not be mailed but must be picked up at the office. FOLLOW UP VISIT: Keep your scheduled follow-up appointment. Any questions, please call the office at . Pending Studies at Discharge: No Stand-Alone Forms: My [facility] Just Above Cost, Smoking Cessation Medications and DC Order Prescriptions: New tramadol 50 mg tablet 50 mg PO Q6H PRN (Reason: pain, moderate) Qty: 30 0RF oxycodone 5 mg tablet 5 mg PO DAILY PRN (Reason: pain) Qty: 30 0RF Continued sildenafil 100 mg tablet 100 mg PO UD PRN (Reason: Sexual Activity) Qty: 6 dicyclomine 10 mg capsule 10 mg PO TID PRN (Reason: IBS/diarrhea) Qty: 90 4RF atorvastatin 40 mg tablet 40 mg PO QAM losartan-hydrochlorothiazide 100-25 mg tablet 1 tab PO QAM atenolol 50 mg tablet 50 mg PO BID lorazepam 0.5 mg tablet 0.5 mg PO QAM naproxen 500 mg tablet 500 mg PO BID PRN (Reason: Pain) gabapentin 600 mg tablet 600 mg PO BID levothyroxine 100 mcg tablet 100 mcg PO QAM diphenoxylate-atropine 2.5-0.025 mg tablet 1 - 2 tab PO BID trazodone 50 mg tablet 50 - 100 mg PO HS tizanidine 4 mg tablet 4 mg PO Q8H PRN (Reason: Muscle Spasm) cholecalciferol (vitamin D3) 1,000 unit Tablet 1,000 unit PO DAILY hydrochlorothiazide 25 mg Tablet 25 mg PO DAILY topiramate [Topamax] 50 mg Tablet 50 mg PO QPM oxycodone-acetaminophen 5-325 mg Tablet 1 tab PO Q4H PRN (Reason: Pain) potassium chloride 10 mEq Capsule, Extended Release 10 meq PO DAILY Discharge Orders: Discharge Order (Routine); Ordered 03/13/23 Ordered By: Brad Pollack/Other Patient Handouts: Prediabetes, 5 Steps for Eating Healthier Admission Data Admit Date/Time: 03/11/23 14:08 Attending Provider: Brad More Admit Provider: Brad More Primary Care Provider: Julio Cesar Lincoln Other Providers: Pablo Briceno ; Joss Ramos
== END 2023-03-13 13:02 | disposition home or self-care (01) | DRG 455 ==
LOC: ASU 10:48 → 3E 14:08